=== PATIENT | female | born 1945 | race African-American/Black ===

== ENCOUNTER 2016-08-14 18:27 | Emergency (ER) | payer MEDICARE, MEDICAID ==
[~2016-08-14] VITALS: Ht 165.1 cm; Wt 66.0 kg
[~2016-08-14 18:27] MED LIST: ALPR-392 PO; AMLO5TAB88 PO; ASPI-1035 PO; ATOR20TA PO; CARV12.545 PO; CITA10TA69 PO; FURO40TA5 PO; LOSA50TA3 PO; PRAS10TA6 PO; SIMV20TA6 PO; TIMO10DR30 BOTHEYE; TRAM50TA3 PO
[2016-08-14] MEDS ORDERED: IBUPROFEN 600MG TABLET PO ONE (18:45)
[2016-08-14 20:27] VITALS: BP 170/8
== END 2016-08-14 20:28 | disposition home or self-care (01) ==
LOC: ER 18:29
DX: S80.02XA Contusion of left knee, initial encounter (principal); R51 Headache; Z88.0 Allergy status to penicillin; Z79.899 Other long term (current) drug therapy; Z79.82 Long term (current) use of aspirin; M19.90 Unspecified osteoarthritis, unspecified site; I11.9 Hypertensive heart disease without heart failure; I25.2 Old myocardial infarction; W01.0XXA Fall on same level from slipping, tripping and stumbling without subsequent striking against object, initial encounter; Y93.89 Activity, other specified; Y99.9 Unspecified external cause status; Y92.89 Other specified places as the place of occurrence of the external cause
CPT/HCPCS: 70450; 73562; 99284

== ENCOUNTER 2017-02-04 14:23 | Inpatient (IN) | payer MEDICARE, MEDICAID ==
[~2017-02-04] VITALS: Ht 154.9 cm; Wt 54.4 kg
[~2017-02-04 14:23] MED LIST changes: -ASPI-1035 PO; +ASPI-1158 PO; +CITA10TA16 PO; -CITA10TA69 PO
[2017-02-04] MEDS ORDERED: ONDANSETRON HCL 4MG/2ML VIAL IV STA (15:53)
[2017-02-04] MEDS ORDERED: ASPIRIN 81MG TABLET PO STA (15:53)
[2017-02-04] MEDS ORDERED: CLONIDINE 0.1MG TABLET PO PRN (16:45)
[2017-02-04 17:13] LABS: BASOPHILS % 0.4 % (0.0-2.0); EOSINOPHILS % 0.6 % (0.0-5.0); HEMATOCRIT. 39.6 % (36.0-48.0); HEMOGLOBIN. 13.3 g/dL (12.0-16.0); LYMPHOCYTES % 21.8 % (20.0-50.0); MEAN CORPUSCULAR HEMOGLOBIN 31.6 pg (28.0-32.0); MEAN CORPUSCULAR VOLUME 94.4 fL (81.0-99.0); MEAN PLATELET VOLUME 7.7 fl (7.4-10.4); MONOCYTES % 8.4 % (2.0-8.0); NEUTROPHILS % 68.8 % (40.0-76.0); PLATELET 191 x1000/uL (130-400); RED CELL DISTRIBUTION WIDTH 13.3 % (11.6-14.6)
[2017-02-04 17:19] LABS: CARBON DIOXIDE 30 mEq/L (21-32); CHLORIDE 105 mEq/L (98-107)
[2017-02-04 17:20] LABS: D-DIMER 0.46 mg/L FEU (<0.50); PARTIAL THROMBOPLASTIN TIME 24.5 sec (23.4-31.0); PROTHROMBIN TIME 10.9 sec (9.4-11.6)
[2017-02-04 17:26] LABS: TROPONIN I 0.03 ng/mL (0.00-0.04)
[2017-02-04 17:53] LABS: CLARITY URINE CLEAR (CLEAR); COLOR URINE YELLOW (YELLOW); GLUCOSE URINE NEGATIVE (NEGATIVE); KETONES URINE NEGATIVE (NEGATIVE); LEUKOCYTE ESTERASE URINE 3+ (NEGATIVE); NITRITE URINE NEGATIVE (NEGATIVE); OCCULT BLOOD URINE TRACE (NEGATIVE); PH URINE 6.5 (4.5-8.0); PROTEIN URINE NEGATIVE (NEGATIVE); SPECIFIC GRAVITY URINE 1.009 (1.005-1.030); UROBILINOGEN URINE 0.2 E.U./dL (0.2-1.0)
[2017-02-04] MEDS ORDERED: FUROSEMIDE 40MG/4ML VIAL IVP ONE (18:30)
[2017-02-04] MEDS ORDERED: ACETAMINOPHEN 325MG TABLET PO ONE (18:30)
[2017-02-04] MEDS ORDERED: LEVOFLOXACIN 500MG PREMIX 100 ML IV ONE (18:30)
[2017-02-04] MEDS ORDERED: POTASSIUM CHLORIDE 20MEQ TABLET SR PO ONE (21:45)
[2017-02-04] MEDS ORDERED: ATORVASTATIN CALCIUM 20MG TABLET PO SCH (22:30)
[2017-02-04 23:00] VITALS: BP 157/62
[2017-02-04] MEDS ORDERED: ACETAMINOPHEN 325MG TABLET PO NR (23:15)
[2017-02-04] MEDS ORDERED: FUROSEMIDE 40MG/4ML VIAL IVP NR (23:15)
[2017-02-04] MEDS: AMLODIPINE 5MG TABLET PO SCH (23:29)
[2017-02-04] MEDS: CARVEDILOL 12.5MG TABLET PO SCH (23:30)
[2017-02-04] MEDS ORDERED: LEVOFLOXACIN 500MG PREMIX 100 ML IV NR (23:59)
[2017-02-05] VITALS: BP 124/59
[2017-02-05 04:00] VITALS: BP 132/75
[2017-02-05 07:40] LABS: BASOPHILS % 0.6 % (0.0-2.0); EOSINOPHILS % 1.3 % (0.0-5.0); HEMATOCRIT. 37.4 % (36.0-48.0); HEMOGLOBIN. 12.6 g/dL (12.0-16.0); LYMPHOCYTES % 35.2 % (20.0-50.0); MEAN CORPUSCULAR HEMOGLOBIN 31.7 pg (28.0-32.0); MEAN CORPUSCULAR VOLUME 94.1 fL (81.0-99.0); MEAN PLATELET VOLUME 8.3 fl (7.4-10.4); MONOCYTES % 13.2 % (2.0-8.0); NEUTROPHILS % 49.7 % (40.0-76.0); PLATELET 180 x1000/uL (130-400); RED BLOOD CELL COUNT 3.98 mill/uL (4.2-5.4); RED CELL DISTRIBUTION WIDTH 13.1 % (11.6-14.6)
[2017-02-05 07:55] LABS: TROPONIN I 0.02 ng/mL (0.00-0.04)
[2017-02-05 08:00] VITALS: BP 158/77
[2017-02-05] MEDS ORDERED: ENOXAPARIN 40MG/0.4ML SYR SUBCUT SCH (09:00)
[2017-02-05] MEDS: ENOXAPARIN 30MG/0.3ML SYR SUBCUT SCH (09:03)
[2017-02-05] MEDS: CITALOPRAM HYDROBROMIDE 10MG TABLET PO SCH (09:03)
[2017-02-05] MEDS: TIMOLOL MALEATE 0.5% OPHTH DROPS 5ML EACHEYE SCH (09:03)
[2017-02-05] MEDS: CARVEDILOL 12.5MG TABLET PO SCH ×2 (09:04→21:00)
[2017-02-05] MEDS: ASPIRIN 81MG EC TABLET PO SCH (09:05)
[2017-02-05] MEDS: TRAMADOL 50MG TABLET PO SCH ×2 (09:05→17:00)
[2017-02-05] MEDS: AMLODIPINE 5MG TABLET PO SCH ×2 (09:05→21:33)
[2017-02-05] MEDS: LOSARTAN POTASSIUM 100 MG TABLET PO SCH (09:06)
[2017-02-05] MEDS: FUROSEMIDE 40MG TABLET PO SCH (09:06)
[2017-02-05 12:00] VITALS: BP 126/62
[2017-02-05] MEDS: CLOPIDOGREL 75MG TABLET PO SCH (14:37)
[2017-02-05 20:00] VITALS: BP_SYST 102; BP_SYST 115; BP_SYST 124; BP_DIAS 52; BP_DIAS 61; BP_DIAS 70
[2017-02-05] MEDS ORDERED: LEVOFLOXACIN 250MG PREMIX 50 ML IV SCH (20:00)
[2017-02-05] MEDS ORDERED: ATORVASTATIN CALCIUM 40MG TABLET PO SCH (21:00)
[2017-02-06] VITALS (7 sets, daily range): BP systolic 118–135; BP diastolic 60–81
[2017-02-06 07:00] LABS: BASOPHILS % 0.5 % (0.0-2.0); EOSINOPHILS % 1.6 % (0.0-5.0); HEMATOCRIT. 40.4 % (36.0-48.0); HEMOGLOBIN. 13.5 g/dL (12.0-16.0); LYMPHOCYTES % 33.9 % (20.0-50.0); MEAN CORPUSCULAR HEMOGLOBIN 31.6 pg (28.0-32.0); MEAN CORPUSCULAR VOLUME 94.3 fL (81.0-99.0); MEAN PLATELET VOLUME 7.9 fl (7.4-10.4); PLATELET 217 x1000/uL (130-400); RED BLOOD CELL COUNT 4.28 mill/uL (4.2-5.4); RED CELL DISTRIBUTION WIDTH 13.2 % (11.6-14.6)
[2017-02-06] MEDS: ENOXAPARIN 30MG/0.3ML SYR SUBCUT SCH (08:50)
[2017-02-06] MEDS: TIMOLOL MALEATE 0.5% OPHTH DROPS 5ML EACHEYE SCH (08:50)
[2017-02-06] MEDS: CITALOPRAM HYDROBROMIDE 10MG TABLET PO SCH (08:50)
[2017-02-06] MEDS: LOSARTAN POTASSIUM 100 MG TABLET PO SCH (08:50)
[2017-02-06] MEDS: ASPIRIN 81MG EC TABLET PO SCH (08:50)
[2017-02-06] MEDS: AMLODIPINE 5MG TABLET PO SCH (08:50)
[2017-02-06] MEDS: CLOPIDOGREL 75MG TABLET PO SCH (08:51)
[2017-02-06] MEDS: FUROSEMIDE 40MG TABLET PO SCH (08:51)
[2017-02-06] MEDS: CARVEDILOL 12.5MG TABLET PO SCH (08:51)
[2017-02-06] MEDS ORDERED: GUAI600T26 PO (13:10)
== END 2017-02-06 16:30 | disposition home or self-care (01) | DRG 194 ==
LOC: ER 14:23 → 5WST 18:27 → EDBEDREQ 18:30 → ENRESERV 21:07 → EDBEDREQ 22:00
PROVIDERS: ADMIT Hospitalist; ATTEND Hospitalist
DX: I11.0 Hypertensive heart disease with heart failure (principal); N17.0 Acute kidney failure with tubular necrosis; N39.0 Urinary tract infection, site not specified; Z95.1 Presence of aortocoronary bypass graft; I25.2 Old myocardial infarction; I50.21 Acute systolic (congestive) heart failure; I25.10 Atherosclerotic heart disease of native coronary artery without angina pectoris; I16.0 Hypertensive urgency; M19.90 Unspecified osteoarthritis, unspecified site; Z98.61 Coronary angioplasty status; Z79.899 Other long term (current) drug therapy; N28.9 Disorder of kidney and ureter, unspecified; Z88.0 Allergy status to penicillin; M94.0 Chondrocostal junction syndrome [Tietze]
CPT/HCPCS: 36415; 70450; 71010; 80048; 80053; 80061; 81001; 83036; 83605; 83690; 83735; 83880; 84443; 84484; 85025; 85379; 85610; 85730; 87040; 87086; 93005; 93306; 93880; 99285; J1650; J1940; J1956; J2405; J7050

== ENCOUNTER 2018-11-04 15:16 | Emergency (ER) | payer MEDICARE, MEDICAID ==
[~2018-11-04] VITALS: Ht 167.6 cm; Wt 56.0 kg
[~2018-11-04 15:16] MED LIST changes: -ALPR-392 PO; +GUAI600T26 PO; -SIMV20TA6 PO
[2018-11-04] MEDS ORDERED: ACETAMINOPHEN 650MG/20.3ML UDC PO ONE (16:00)
[2018-11-04] MEDS ORDERED: TRAMADOL 50MG TABLET PO ONE (16:00)
[2018-11-04 18:30] VITALS: BP 134/60
== END 2018-11-04 18:40 | disposition home or self-care (01) ==
LOC: ER 15:44
DX: S20.212A Contusion of left front wall of thorax, initial encounter (principal); S70.02XA Contusion of left hip, initial encounter; I10 Essential (primary) hypertension; W18.39XA Other fall on same level, initial encounter; Y93.89 Activity, other specified; Y92.89 Other specified places as the place of occurrence of the external cause; Y99.8 Other external cause status; Z98.890 Other specified postprocedural states; Z79.82 Long term (current) use of aspirin; Z79.899 Other long term (current) drug therapy; Z88.0 Allergy status to penicillin
CPT/HCPCS: 71101; 99283